=== PATIENT | female | born 1980 | race Caucasian/White ===

== ENCOUNTER 2023-03-24 12:03 | Emergency (ER) | payer OTHER, SELFPAY ==
[2023-03-24 12:28] VITALS: BP 118/76; PULSE 64; RESP 16; TEMP 36.3; O2SAT 100; BMI 21.6
--- NOTE | 2023-03-24 12:56 | CRLHL7_ITS ---
For Patients: As a result of the Century Cures Act, medical imaging exams and procedure reports are released immediately into your electronic medical record. You may view this report before your referring provider. If you have questions, please contact your health care provider. INDICATION: RUQ PAIN COMPARISON: CT 03/19/2023 TECHNIQUE: Real time ruvalcaba scale imaging and color Doppler analysis was performed of the right upper quadrant. FINDINGS: The patient`s liver is of normal size and has uniform echogenicity. There is a normal appearance of the hepatic IVC and proximal abdominal aorta. There is no evidence of ascites. The gallbladder is of normal size and there is no evidence of intraluminal stones or sludge. The gallbladder wall measures 2 mm in thickness. The common bile duct is of normal size and measures 4 mm in diameter at the level of the fanny hepatis. The pancreas appears normal. There is no evidence of a stone or hydronephrosis within the right kidney. The right kidney measures 11.7 cm in length. IMPRESSION: Normal right upper quadrant ultrasound. Dictated by Jake Baird MD @ 03/24/2023 1:54:52 PM (Electronically Signed)
--- NOTE | 2023-03-24 12:56 | CRLHL7_ITS ---
For Patients: As a result of the Cures Act, medical imaging exams and procedure reports are released immediately into your electronic medical record. You may view this report before your referring provider. If you have questions, please contact your health care provider. Indication: .RIGHT SIDED ABD PAIN Technique: Abdomen 2 view. Comparison: None. Findings/Impression: Non-obstructive bowel gas pattern. No free air. 4 millimeter calcification overlying the right satish abdomen, no stone was in this location on the most recent CT. Osseous structures are unremarkable for age. Dictated by Jake Jc MD @ 03/24/2023 4:17:13 PM (Electronically Signed)
--- NOTE | 2023-03-24 13:00 | ED.ABDPAIN ---
HPI - Abdominal Pain General Date Seen: 03/24/23 Chief Complaint: Abdominal Pain Stated Complaint: R side abdominal/back pain Time Seen by Provider: 03/24/23 12:07 Source: patient Mode of arrival: ambulatory Limitations: no limitations History of Present Illness HPI narrative: Patient is a 42-year-old female G3 3 you presents here with right-sided abdominal pain for the past 7-10 days. She describes in her right side of her abdomen, just below her ribcage, with radiation around to the front. It doubles her over, is worse with movement, or eating. She has had no vomiting but some nausea early on with this. She has had a loose stool or 2 but really decrease in her stool volume over the past 7-10 days. She tells me she does not really have a history of constipation but does have irritable bowel syndrome she tried a stool softener few days ago. She is seen for physicians 2 in the emergency room in 2 in primary care over this time. She has had 2 CT scans of her abdomen and pelvis 1 with contrast 1 without. That have showed no acute abnormality except to slightly increased stool load. Pelvic ultrasound is also been done, that showed no acute gynecologic abnormality. She has been to 2 primary care physician's with the 1 today telling her that there is nothing more can be done. Absence of fevers chills sweats dysuria frequency vaginal bleeding, coughing wheezing shortness of breath no recent travel history, and no other people currently help. Medications reviewed, that she has taken. She finds the oxycodone helpful for a while but is taking 2 tablets every 4-6 hours. He basically gone through this. Review of the [employer] shows that before this episode she really did have any prescriptions at all. Has not followed up with GI her irritable bowel syndrome. Only operation she has had have been for C-sections. Tells me that she does not think that she can go home without a diagnosis, I did talk to her briefly about the fact that often times he do CP with undifferentiated abdominal pain, that we can give a diagnosis of what is going on but can tell him what is not. Is not as 's side of a cecectomy, in her. The been regular. Related Data Patient : No Home Medications Medication Instructions Recorded Confirmed propranolol 40 mg tablet 40 mg PO Q12H 03/19/23 03/24/23 sertraline 100 mg tablet 150 mg PO DAILY 03/19/23 03/24/23 spironolactone 100 mg tablet 100 mg PO DAILY 03/19/23 03/24/23 trazodone 50 mg tablet 50 - 100 mg PO QPM PRN insomnia 03/19/23 03/24/23 gabapentin 300 mg capsule 300 mg PO 3XD 03/24/23 03/24/23 ondansetron 4 mg disintegrating 4 mg PO Q8H PRN nausea 03/24/23 03/24/23 tablet oxycodone 5 mg tablet 5 mg PO Q4H PRN pain 03/24/23 03/24/23 Previous Rx's Medication Instructions Recorded hydrocodone 5 mg-acetaminophen 325 1 tab PO Q8H PRN pain #10 tabs 03/19/23 mg tablet Allergies Allergy/AdvReac Type Severity Reaction Status Date / Time topical antifungals Allergy Intermediate Uncoded 03/19/23 08:51 Review of Systems Status of ROS Reports: 10 or more systems reviewed and unremarkable except as noted in History and below PFSH [facility] Social History Smoking Status: Never smoker Second hand tobacco smoke exposure: No How often do you have a drink containing alcohol: monthly or less AUDIT-C Alcohol total score: 1 Non-prescribed substance use: denies use service: No Exam Narrative: Exam Narrative: Examination she is in no apparent distress she is very pleasant her vital signs are reviewed and normal. No scleral icterus redness or TMs are normal, oropharynx is normal previous tonsillectomy noted. There is no lymphadenopathy anterior posterior chains her neck is supple, her chest is clear bilaterally with easy respirations heart sounds are normal does have some [id number] tenderness in the right upper quadrant, on palpation percussion. Overall would negative Leigh's test. Bowel sounds are quiet, no masses are noted no organomegaly, he moves extremities independently well forward flexion extensions normal, no radiation of discomfort into her lower extremities, there is no swelling of her lower extremities negative edema normal pulses and she has a negative SLR bilaterally. Back is nontender on palpation will rashes, Const: Vital Signs, click to edit/add: Vital Signs - 24 hr 03/24/23 12:28 Temperature 97.4 F L Pulse Rate [Right Pulse Oximeter] 64 Respiratory Rate 16 Blood Pressure [Ri ght Upper Arm] 118/76 Pulse Oximetry 100 Oxygen Delivery Me thod Room Air Documenting provider has reviewed patient's vital signs: yes Course Course Hospital Course: I had a long talk with the patient over her symptoms, her workup thus far I do not think there be any benefit all doing 3 CT scans, with the information, her examination is benign, we did do an ultrasound of her right upper quadrant, and kidney which was really did not show any abnormality, radiology read pending, at this point, with the flat and upright x-ray showing distension stool I think 1st thing 1st would be use of MiraLax to try to clean her out, is possible that this is somehow related to her a bowel syndrome, but also possibility of stomach related or possibly peptic ulcer disease for which I have at instructed her to use omeprazole. Follow-up with GI strongly recommended, we went over signs and symptoms of worsening, would avoid using narcotics at this point, because this is going to further, cause decrease mobility and worsen her constipation. Return here if signs and symptoms but I do think the likelihood of something severe or catastrophic is low. I did talk to her briefly about her back I reviewed the CT scans I did see a huge amount of discogenic issues in her back, we talked about going off the gabapentin. Given the time course of 10 days I think it is unlikely that this is shingles, but warned her that a rash would make me think of this. Vital Signs Vital signs: Initial Vital Signs Temperature 97.4 F L 03/24/23 12:28 Temperature Source Temporal Artery Scan 03/24/23 12:28 Pulse Rate 64 03/24/23 12:28 Respiratory Rate 16 03/24/23 12:28 Blood Pressure 118/76 03/24/23 12:28 Blood Pressure Mean 90 03/24/23 12:28 Blood Pressure Position Sitting 03/24/23 12:28 Pulse Oximetry 100 03/24/23 12:28 Oxygen Delivery Method Room Air 03/24/23 12:28 Vital Signs Temperature 97.4 F L 03/24/23 12:28 Pulse Rate 64 03/24/23 12:28 Respiratory Rate 16 03/24/23 12:28 Blood Pressure 118/76 03/24/23 12:28 Pulse Oximetry 100 03/24/23 12:28 Oxygen Delivery Method Room Air 03/24/23 12:28 Temperature 97.4 F L 03/24/23 12:28 Pulse Rate 64 03/24/23 12:28 Respiratory Rate 16 03/24/23 12:28 Blood Pressure 118/76 03/24/23 12:28 Pulse Oximetry 100 03/24/23 12:28 Oxygen Delivery Method Room Air 03/24/23 12:28 MDM - Abdominal Pain MDM Narrative Medical decision making narrative: During the evaluation of this patient I considered multiple differential diagnosis including life-threatening differentials which are appendicitis, aortic aneurysm, mesenteric ischemia, bowel perforation, ectopic , volvulus and bowel obstruction, other differential diagnosis include but are not limited to inflammatory bowel disease, cholecystitis, pancreatitis, hepatitis, gastritis, GERD, diverticulitis, peptic ulcer disease, pyelonephritis/UTI, renal colic/stone, pelvic inflammatory disease, cervicitis, endometritis, intrauterine , dysfunctional uterine bleeding, ovarian cyst/torsion, spontaneous as well as other etiologies Medical Records Attestation: I reviewed the patient's medical records. Medical records narrative: Was able to review the medical records from the emergency department a visit at [facility], and also her primary care visit today. Lab Data Attestation: I reviewed the patient's lab results. Labs: Lab Results 03/24/23 Range/Units 13:08 Urine Color Yellow (Yellow) Urine Appearance Clear (Clear) Urine pH 8.5 (5.0-8.5) Ur Specific [place] 1.015 (1.000-1.030) Urine Protein Negative (Negative) Urine Glucose (UA) Negative (Negative) Urine Ketones 1+ A (Negative) Urine Blood Negative (Negative) Urine Nitrite Negative (Negative) Urine Bilirubin Negative (Negative) Urine Urobilinogen 0.2 (0.2-1.0) Ur Leukocyte Esterase Negative (Negative) Urine RBC 2-5 A (0-2) Urine WBC 0-2 (0-5) Ur Squamous Epith Cells Few (None-Few) Urine Bacteria None (None) Imaging Data Ultrasound right upper quadrant: Attestation: I have reviewed the pertinent imaging results. My impression: Negative Radiologist's impression: Patient: SAW MONTALVO Facility:?[facility] Patient ID:?[id number] Site Patient ID:?[id number]. Site :?[id number] Study:?US Abdomen/Pelvis -03/24/2023 1:43:30 PM Ordering Physician:Ranjan Oleary Final Report: INDICATION: RUQ PAIN COMPARISON: CT 03/19/2023 TECHNIQUE: Real time ruvalcaba scale imaging and color Doppler analysis was performed of the right upper quadrant. FINDINGS: The patient`s liver is of normal size and has uniform echogenicity. There is a normal appearance of the hepatic IVC and proximal abdominal aorta. There is no evidence of ascites. The gallbladder is of normal size and there is no evidence of intraluminal stones or sludge. The gallbladder wall measures 2 mm in thickness. The common bile duct is of normal size and measures 4 mm in diameter at the level of the fanny hepatis. The pancreas appears normal. There is no evidence of a stone or hydronephrosis within the right kidney. The right kidney measures 11.7 cm in length. IMPRESSION: Normal right upper quadrant ultrasound. Dictated by Jake Baird MD @ 03/24/2023 1:54:52 PM (Electronic Signature) Discharge Plan Discharge Clinical Impression: Abdominal pain Patient Disposition: Home, Self-Care Condition: Stable Instructions: Abdominal Pain (ED) Additional Instructions: I wonder about refer cause of your abdominal pain can be related to constipation, use MiraLax 1 cap full with 20 oz of water daily for few days to see we can promote evacuation of this and see if that helps her discomfort. I would also use omeprazole 20 mg a day. I think the for the stomach as the possible causes of the gastritis or possibly peptic ulcer is also in the realm. Follow-up with GI, either through [facility] and Dr. Pugh, or [facility]. Return here if fevers chills nausea vomiting or change, but so far all of your testing has been really reassuring I understand how frustrating at his, which try to avoid using narcotic medication. that can promote more constipation. Activity Level: No Restrictions Discharge Diet: Regular Prescriptions: No Action trazodone 50 mg tablet 50 - 100 mg PO QPM PRN (Reason: insomnia) spironolactone 100 mg tablet 100 mg PO DAILY sertraline 100 mg tablet 150 mg PO DAILY propranolol 40 mg tablet 40 mg PO Q12H Patient Comments: [NO ORIGINAL SIG] hydrocodone-acetaminophen 5-325 mg tablet 1 tab PO Q8H PRN (Reason: pain) Qty: 10 0RF gabapentin 300 mg capsule 300 mg PO 3XD ondansetron 4 mg tablet,disintegrating 4 mg PO Q8H PRN (Reason: nausea) oxycodone 5 mg tablet 5 mg PO Q4H PRN (Reason: pain) Follow Up/Referrals: Faiza Coombs MD [Primary Care Provider] - [facility] Inst[facility]
[2023-03-24 13:45] LABS: Appearance Urine Clear (Clear); Bilirubin Urine Negative (Negative); Blood Urine Negative (Negative); Color Urine Yellow (Yellow); Glucose Urine Negative (Negative); Ketones Urine 1+ (Negative); Leukocyte Esterase Urine Negative (Negative); Nitrite Urine Negative (Negative); Protein Urine Negative (Negative); Specific Gravity Urine 1.015 (1.000-1.030); Urobilinogen Urine 0.2 (0.2-1.0); pH Urine 8.5 (5.0-8.5)
[2023-03-24 13:55] LABS: Squamous Epithelial Cell Urine Few (None-Few); WBC Urine 0-2 (0-5)
== END 2023-03-24 14:09 | disposition home or self-care (01) ==
PROVIDERS: Emergency Provider Family Medicine; PCP Family Medicine
DX: R10.9 Unspecified abdominal pain (principal)
CPT/HCPCS: 74019; 76705; 81001; 99283; 99284